=== PATIENT | female | born 1965 ===

== ENCOUNTER 2016-12-12 17:20 | Emergency (ER) | payer SELFPAY | END 2016-12-12 18:41 | disposition home or self-care (01) | LOC: ED 17:20 | DX: R22.0 Localized swelling, mass and lump, head (principal) ==

== ENCOUNTER 2017-01-02 20:19 | Emergency (ER) | payer SELFPAY ==
[2017-01-02 21:00] LABS: PH,URINE 6.5 (5.0-8.0); SPECIFIC GRAVITY 1.015 (1.001-1.030); URINE BILIRUBIN NEGATIVE (NEGATIVE); URINE BLOOD 2+ (NEGATIVE); URINE GLUCOSE (UA) NEGATIVE (NEGATIVE); URINE LEUKOCYTE ESTERASE TRACE (NEGATIVE); URINE NITRITE NEGATIVE (NEGATIVE); URINE PROTEIN NEGATIVE (NEGATIVE); URINE UROBILINOGEN NORMAL (0-1 mg/dl)
[2017-01-02 21:04] LABS: URINE APPEARANCE CLEAR; URINE COLOR YELLOW
[2017-01-02 21:13] LABS: URINE BACTERIA 1+
[2017-01-02] MEDS ORDERED: SODIUM CHLORIDE 0.9% 1,000 ML ONE (21:55)
[2017-01-02] MEDS ORDERED: ONDANSETRON 4 MG/2ML 2 ML VIAL ONE (21:55)
[2017-01-02 22:06] LABS: BASO % 0.3 % (0.2-1.0); EOS # 0.2 (0.0-0.5); EOS % 2.7 % (0.9-2.9); HEMATOCRIT 36.5 % (37.0-47.0); HEMOGLOBIN 12.3 gm/l (12.0-16.0); IMM NEUT% 0.4 % (0-1); LYMPH # 2.1 (1.0-4.8); LYMPH % 26.3 % (15-45); MEAN CELL VOLUME 85.5 fl (81.0-99.0); MEAN CORPUSCULAR HEMOGLOBIN 28.8 pg (27.0-31.0); MEAN CORPUSCULAR HGB CONC 33.7 g/dl (33.0-37.0); MEAN PLATELET VOLUME 9.8 fl (7.4-10.4); MONO # 0.6 (0.0-0.8); MONO % 7.1 % (4-12); NEUT % 63.2 % (43-75); PLATELET COUNT 273 K/mm3 (130-400); RED CELL DISTRIBUTION WIDTH 12.5 % (11.5-14.5)
[2017-01-02] MEDS: IOPAMIDOL 370 (76%) IV.SOLN 150 ML IV ONE (22:12)
[2017-01-02 22:17] LABS: ALB/GLOB RATIO 1.3 (>1.0); ALBUMIN 3.9 gm/dL (3.5-5.7); CALCIUM 8.9 mg/dL (8.6-10.3)
[2017-01-02 22:37] LABS: ATYPICAL LYMPHOCYTE 5 %; BAND 0 % (0-10); BASOPHIL 1 % (0-1); EOSINOPHIL 3 % (1-3); LYMPHOCYTE 23 % (15-45); MONOCYTE 4 % (4-12); NEUTROPHILS 64 % (43-75); PLATELET ESTIMATE NORMAL (NORMAL); TOTAL CELLS COUNTED 100
--- NOTE | 2017-01-03 07:38 | RAD ---
History: Fever. Comparison: 11/25/2004. Technique: 2 views Findings: The soft tissue and bony structures are unremarkable. The heart size is appropriate. No infiltrate, effusion or pneumothorax is observed. The hilar and mediastinal structures are normal. Impression: 1. No active intra-thoracic disease.
--- NOTE | 2017-01-03 07:45 | CT ---
Exam Type: ABD/PELVIS W/ CON Date and Time: 01/02/2017 9:46 PM Clinical information: Left lower quadrant pain. Comparison: None Procedure: Imaging device: [employer] Aquilion [address] scanner 1 mm axial images were obtained through the abdomen and pelvis. Stacked reconstructed 3, 4 and 5 mm images were photographed in the axial coronal and sagittal planes. No oral contrast was utilized for this examination. 100 ml of Isovue-370 was injected intravenously. Exam: with intravenous contrast. FINDINGS: Lung bases: Minimal dependent atelectatic changes are visualized. There is a small calcified nodule seen within the right pulmonary base on lung window image #4. Liver: the liver is homogeneous with no discrete abnormality visualized. No definite findings of biliary dilatation are observed. Spleen: The spleen is homogeneous and does not appear to be enlarged. Gallbladder: Normal without enlargement or evidence of adjacent inflammatory changes. Pancreas: Normal without enlargement or evidence of adjacent inflammatory changes. Adrenal glands: Normal without enlargement or evidence of adjacent inflammatory changes. Abdominal aorta: The aorta is of normal caliber and appears to be without significant atherosclerotic disease. Kidneys: There is a low-attenuation focus seen within the anterior aspect of the left kidney likely reflecting a renal cyst. No evidence of hydronephrosis is visualized. Bowel structures: A few scattered distal colonic diverticula are identified without associated inflammatory stranding. Mild enhancement of the wall of several lower abdominal and pelvic small bowel loops may reflect findings of underlying enteritis. No evidence of obstruction is seen. Appendix: The appendix is well-visualized and appears to be of normal caliber. No periappendiceal inflammatory changes or CT findings of appendicitis are currently observed. Bladder: The bladder is of normal contour. No wall thickening or significant distention is observed. Hernia: No abdominal wall or inguinal hernia is visualized on this examination. Adenopathy: No significant enlarged adenopathy is visualized. Osseous structures: No discrete osseous abnormalities are identified. Pelvic structures: A small amount of pelvic free fluid is visualized. IMPRESSION: 1. A few scattered distal colonic diverticula without inflammatory stranding to suggest diverticulitis. 2. Mild suggested wall enhancement of the small bowel loops within the lower abdomen and pelvis which may reflect findings of underlying enteritis. No evidence of obstruction is seen. 3. A normal appearance of the appendix without CT evidence of appendicitis. 4. Findings of prior granulomatous disease. 5. A probable left renal cyst. 6. A small amount of pelvic free fluid. The findings were called to the emergency room at 2245 hours, 01/02/2017, by [facility].
== END 2017-01-02 23:35 | disposition home or self-care (01) ==
LOC: ED 20:19
DX: B34.9 Viral infection, unspecified (principal); R10.9 Unspecified abdominal pain; R53.81 Other malaise; R11.0 Nausea